=== PATIENT | female | born 1945 | race African-American/Black ===

== ENCOUNTER 2018-02-09 12:43 | Inpatient (IN) | payer OTHER ==
[~2018-02-09] VITALS: Ht 170.2 cm; Wt 76.7 kg
--- NOTE | ~2018-02-09 | HC ---
[facility] [place] [address] CONSULTATION Name: RHIANNA CORDERO Room #: 363-P [facility] IN ..#: [id number] Admission: 02/09/18 Attend Phys: Lu Feldman Discharge: 02/10/18 Date of : 43 Report #: [id number] THIS REPORT FOR: //name// CC: Tommy Ott DATE OF SERVICE: 02/10/2018 CHIEF COMPLAINT: Pressure ulcerations. HISTORY OF PRESENT ILLNESS: This is a 72-year-old female patient who was admitted to the hospital with elevated liver function tests and potential history of cirrhosis. She has had a history of a neuroendocrine tumor of the pancreas, status post Whipple procedure and atrial fibrillation. She was noted to have some ulceration in her pelvic region. I have been asked to see her with regard to wound care. ALLERGIES: INCLUDE PENICILLIN. MEDICATIONS: Please see the MAR, which has been reviewed. FAMILY HISTORY: Unknown. PAST SURGICAL HISTORY: The patient has had previous Whipple procedure and previous splenectomy. She has a history of a PEG tube. SOCIAL HISTORY: The patient has been living in nursing care facility. She was and had lived with her prior to recent illnesses. REVIEW OF SYSTEMS: Mostly unobtainable due to the patient's level of alertness. She complains of some diffuse abdominal discomfort, otherwise is unobtainable. PHYSICAL EXAMINATION: VITAL SIGNS: At this time includes pulse rate 92, respiratory rate of 16, blood pressure 140/74, temperature 98.3. GENERAL: This is a chronically ill-appearing female patient who appears to be in minimal distress. HEENT: Head normocephalic. Nose and throat are clear. NECK: Supple. LUNGS: Clear. ABDOMEN: Soft, mild tenderness throughout. No specific guarding or rebound noted. PEG tube noted. EXTREMITIES: Lower extremities demonstrate trace edema. Distal pulses are diminished, but palpable. SKIN: Pelvic region demonstrates a few areas of scarring, on the sacral region and the right posterior thigh. The heels are intact and overall, I do not find [facility] [address] [place] [address] CONSULTATION Name: RHIANNA CORDERO Room #: 363-P [facility] IN M.R.#: [id number] Admission: 02/09/18 Attend Phys: Lu Feldman Discharge: 02/10/18 Date of : 43 Report #: [id number] any skin breakdown at present, although evidence of prior pressure ulceration is noted. CLINICAL IMPRESSION: 1. History of likely pressure ulcerations, which now appear to be closed and epithelialized. 2. Hepatitis. 3. History of neuroendocrine tumor of the pancreas, status post Whipple procedure. 4. History of respiratory failure. RECOMMENDATIONS: At this point in time, I think the patient would be best cared for in a low air loss mattress with frequent turning and repositioning as pressure prophylaxis as well as Prevalon boots while she is in bed. Barrier cream would also be a helpful preventative measure to the sacral gluteal region. At this point in time, she has no active open ulcerations or wounds and therefore, we will sign off and not follow her unless she were to develop some disruption of her skin. I do appreciate being asked to see her in consultation. <ELECTRONICALLY SIGNED> By: Allen Fernández MD 02/11/18 1131 39 Allen Fernández MD /nt
--- NOTE | ~2018-02-09 | H ---
[facility] [place] [address] HISTORY AND PHYSICAL Name: GILRHIANNA Room #: 363-P ADM IN .R.#: [id number] Admission: 02/09/18 Attend Phys: Lu Feldman Discharge: Date of : 43 Report #: [id number] THIS REPORT FOR: //name// CC: Tommy Ott DATE OF SERVICE: 02/09/2018 CHIEF COMPLAINT: Abdominal pain. HISTORY OF PRESENT ILLNESS: The patient is a 72-year-old female who is admitted from [facility] for evaluation of abnormal liver function test. Her history began in November of this year when she underwent a resection of a neuroendocrine tumor of the pancreas at [facility] after previously having a diagnosis in April of 2016. That hospital course in November was complicated postoperatively with an intra-abdominal infection and sepsis due to a hepatojejunostomy leak that required additional surgery on November 30 of exploratory laparotomy, repair of leak and removal of drainage of an intra-abdominal abscess. Cultures grew a multidrug resistant E. coli, Klebsiella, Enterococcus Luisa and Prevotella. She developed respiratory failure requiring intubation, mechanical ventilation, tracheostomy and PEG tube placement along with acute kidney injury and paroxysmal atrial fibrillation. She then transferred to [facility] where she was subsequently weaned from the ventilator and decannulated. However, on January 04 when [facility] closed, she was transferred to [facility] where she has been under the care of Dr. Elisabeth Buckner. She has had complications of fever and has been on antibiotics. There is also been complications of anemia and required transfusions. In recent days, she has noted increasing liver function tests and alkaline phosphatase and there is a concern for cholangitis or primary biliary cirrhosis. She is admitted for GI evaluation. PAST MEDICAL HISTORY: As above. Surgery included pancreatectomy, splenectomy, Robson-en-Y hepatojejunostomy and then the exploratory laparotomy approximately 10 days later. She has also had a trach which has been decannulated and currently has a PEG tube. There is also history of hypertension, breast cancer in remission and paroxysmal atrial fibrillation. PAST SURGICAL HISTORY: As above. FAMILY HISTORY: Unknown. SOCIAL HISTORY: She was and lives with her prior to this illness. No chronic alcohol or tobacco use. ALLERGIES: PENICILLIN. [address] [address] HISTORY AND PHYSICAL Name: RHIANNA CORDERO Room #: 363-P [facility] IN [facility].#: [id number] Admission: 02/09/18 Attend Phys: uL Feldman Discharge: Date of : 43 Report #: [id number] MEDICATIONS: See the transfer list. REVIEW OF SYSTEMS: She complains of diffuse pain, some abdominal discomfort. PHYSICAL EXAMINATION: VITAL SIGNS: Per the nursing note. GENERAL: She is an elderly lady, looks chronically ill. She is awake and alert. HEAD AND NECK: Unremarkable. LUNGS: Clear. HEART: Regular. ABDOMEN: Protuberant. She is tender in the right upper quadrant. There is a PEG tube in the mid left abdomen. EXTREMITIES: No cyanosis, clubbing or edema. NEUROLOGIC: Global strength 3/5. SKIN: She has gluteal wound and wound over her mid back and scapular area. LABORATORY DATA: AST 730, ALT 293, bilirubin 3.8, alkaline phosphatase 6554. ASSESSMENT: 1. Hepatitis of unknown etiology. Consider cholangitis, infectious or obstructive. 2. Neuroendocrine tumor of the pancreas, status post Whipple procedure and excision on November 19 complicated by anastomosis leak and exploratory laparotomy November 30. 3. History of respiratory failure apparently self decannulated at [facility], has been stable for several days, hyperkalemia, recent potassium 5.8, possibly related to Aldactone use, anemia of chronic disease, personal history of remote breast cancer, history of hypertension, history of paroxysmal atrial fibrillation. PLAN: I will ask for a CT of the abdomen and pelvis along with lab work. I have asked the GI and ID services to see her as well. <ELECTRONICALLY SIGNED> By: Benito Montana MD 02/10/18 0914 [id number] [id number] Benito Montana MD /nt
--- NOTE | ~2018-02-09 | HC ---
[facility] [place] [address] CONSULTATION Name: RHIANNA CORDERO Room #: 363-P ADM IN M.R.#: [id number] Admission: 02/09/18 Attend Phys: Lu Feldman Discharge: Date of : 43 Report #: [id number] THIS REPORT FOR: //name// CC: Tommy Ott TYPE OF REPORT: Infectious diseases consultation. REASON FOR CONSULTATION: I was asked to evaluate concerning leukocytosis, abdominal pain in the setting of previous upper abdominal infection following Whipple's procedure. HISTORY OF PRESENT ILLNESS: The patient was a 72-year old who transferred from [facility] because of markedly increased alkaline phosphatase in the 6000 range and persistent abdominal pain. In November of this year, she underwent a Whipple procedure for neuroendocrine tumor of the pancreas by Dr. Candido Paiz. Her initial diagnosis was in April of 2016. This was complicated by hepatojejunostomy leak and required further surgical intervention and drainage of intra-abdominal abscess. Cultures revealed E. coli, Klebsiella, Enterococcus, Prevotella and Luisa. She received a prolonged course of antibiotics. Transferred to [facility] and while there, she required transfer to [facility] due to closure of that facility. Since evaluation at [facility], she has had weaning from the ventilator. She self decannulated 2 days ago and has remained stable from respiratory standpoint. However, she has had persistent abdominal pain and swelling in the epigastric region. She has had several CT scans, which showed no evidence of intra-abdominal abscess or extension of her tumor. She does have a common bile duct stent in place. Most recent CAT scan was from this past week. Due to inability to further work this issue up at the acute long-term care facility, she was transferred for further evaluation today at [facility]. No fever, chills or sweats. Intermittent cough. Her tracheostomy stoma has healed. No dysuria or frequency. Has peripheral edema. Soft loose stool. ALLERGIES: PENICILLIN. MEDICATIONS: As noted on her MAR including meropenem, Lasix, Imodium, Lopressor, Protonix, potassium, spironolactone, oxycodone and morphine p.r.n. PAST MEDICAL HISTORY: Pancreatectomy, splenectomy, Robson-en-Y, hepatojejunostomy, neuroendocrine pancreatic tumor, hypertension, breast cancer in remission, paroxysmal atrial fibrillation and respiratory failure and now weaned off the ventilator. FAMILY HISTORY: Noncontributory. SOCIAL HISTORY: . Nonsmoker. No significant alcohol intake. [facility] [address] [place] [address] CONSULTATION Name: RHIANNA CORDERO Room #: 363-P [facility].#: [id number] Admission: 02/09/18 Attend Phys: Lu Feldman Discharge: Date of : 43 Report #: [id number] PHYSICAL EXAMINATION: VITAL SIGNS: Afebrile and hemodynamically stable. Oxygen saturation normal on room air. GENERAL: Alert and cooperative. HEENT: Tracheostomy stoma sealed. LUNGS: Decreased breath sounds in the bases with consolidation heard in the mid posterior chest regions, left greater than right. HEART: Regular, without murmur. ABDOMEN: Fullness in the epigastric region. Diffusely tender in this area. No other mass appreciated. Obese. EXTREMITIES: 2+ peripheral edema in lower extremities. NEUROLOGICAL: Nonfocal other than generalized weakness. LABORATORY DATA: Sodium 140, potassium 5, bicarbonate 21 and creatinine 1.4. AST 422, lipase 2706, bilirubin 3.2, alkaline phosphatase 6401, ALT 266, GGTP 630 and albumin 1.6. INR 1.1. Hemoglobin 8; WBC 13.5 and platelet count 367,000. Differential unremarkable. Blood cultures pending. RADIOLOGICAL DATA: CT scan of the abdomen pending. Chest x-ray shows vascular congestion, basilar infiltrates, left greater than right. Small left effusion. CT of the pelvis pending. IMPRESSION: Marked elevation in her alkaline phosphatase with elevated other liver function test markers and GGTP. I am still suspecting complication from her surgery whether blocked stent or related to metastatic disease from a neuroendocrine tumor. Currently, no evidence of anastomotic leak. I had previously discussed with Radiology at [facility] earlier in the week regarding findings on her CAT scan. There was no significant intrahepatic duct dilatation. She also has respiratory failure, having just decannulated herself within the last 2 days. So far seems reasonably stable, although she is definitely at risk for further respiratory compromise. She does have congestive heart failure and basilar infiltrates. She has peripheral edema and anasarca. RECOMMENDATIONS: Recommend continuing meropenem for broad antibiotic coverage to cover both intra-abdominal source, cholangitis and basilar pneumonitis. We would have General Surgery evaluate after repeat CAT scan as well as GI service to get a game plan as far as options to treat this patient going forward. <ELECTRONICALLY SIGNED> By: Mio Croft MD 02/10/18 1030 20 0029 Mio Croft MD /nt
[~2018-02-09 12:43] MED LIST: ARTHROTEC 75 T1 EAC1 PO; CIPROFLOXACIN500 M3 PO; CRESTOR10 MG PO; MUCINEX600 MG PO; NASONEX17 GM NASAL; NEXIUM40 MG PO; PROCARDIA XL60 MG PO; QUINAPRIL 20 MG20 MG PO; THERA-M CAPLET1 EACH PO; TRAMADOL 50 MG50 MG PO; [UNRECOGNIZED DRUG - OTHER] PO
[2018-02-09 16:35] VITALS: BP 165/58
[2018-02-09 17:24] LABS: RBC 2.61 mil/uL (4.20-5.00); RDW 17.5 % (10.5-14.5)
[2018-02-09 17:26] LABS: HEMATOCRIT 25.4 % (37.0-47.0); MCH 30.5 pg (26.0-34.0); MCHC 31.5 g/dL (28.0-37.0); WBC 13.5 thou/uL (4.0-11.0)
[2018-02-09 17:37] LABS: INR 1.1; PROTIME 11.3 Seconds (9.3-11.4)
[2018-02-09 17:54] LABS: ALBUMIN 1.6 g/dL (3.4-5.0); CALCIUM 9.3 mg/dL (8.5-10.1); CREATININE 1.4 mg/dL (0.6-1.0); TOTAL BILIRUBIN 3.2 mg/dL (<0.1-1.0); TOTAL PROTEIN 7.7 g/dL (6.4-8.2)
[2018-02-09 18:07] LABS: ABSOLUTE NEUTROPHILS 10.1 thou/uL (1.4-8.2); TARGET CELLS FEW
[2018-02-09 18:08] LABS: HYPOCHROMASIA 1+; POLYCHROMASIA OCCASIONAL
[2018-02-09 18:30] LABS: PLATELET COUNT 376 thou/uL (150-400)
[2018-02-09 20:00] VITALS: BP 130/65
[2018-02-09 23:50] VITALS: BP 120/61
[2018-02-10] MEDS ORDERED: LASIX 40 MG TAB40 M2 IV PUSH (02:54)
[2018-02-10] MEDS ORDERED: LOPERAMIDE 2 MG2 M1 PO (02:55)
[2018-02-10] MEDS ORDERED: MEROPENEM-500 MG/50 IVPB (02:57)
[2018-02-10] MEDS ORDERED: TOPROL XL25 MG PO (02:58)
[2018-02-10] MEDS ORDERED: PROTONIX40 M1 IV PUSH (02:59)
[2018-02-10] MEDS ORDERED: EFFER-K 20 MEQ20 ME1 PO (03:02)
[2018-02-10] MEDS ORDERED: PROSOURCE PLUS30 ML PO (03:10)
[2018-02-10] MEDS ORDERED: ALDACTONE25 MG PO (03:12)
[2018-02-10] MEDS ORDERED: REMEDY CALAZIM113 G2 TOP (03:14)
[2018-02-10] MEDS ORDERED: TUMS PO (03:16)
[2018-02-10] MEDS ORDERED: GLUCAGON EMERGEN1 MG SUBQ (03:20)
[2018-02-10] MEDS ORDERED: GLUTOSE GEL 1515 G1 PO (03:24)
[2018-02-10] MEDS ORDERED: GLUCOSE BITS1 GM PO (03:25)
[2018-02-10] MEDS ORDERED: MORPHINE SU4 MG/1 ML IV PUSH (03:28)
[2018-02-10] MEDS ORDERED: ONDANSETRON HCL4 M2 PO (03:30)
[2018-02-10] MEDS ORDERED: OXYCODONE HCL 55 MG PER TUBE (03:32)
[2018-02-10 04:00] VITALS: BP 103/60
[2018-02-10 05:57] LABS: HEMATOCRIT 23.1 % (37.0-47.0); HEMOGLOBIN 7.6 gm/dL (12.0-15.0); MCH 31.5 pg (26.0-34.0); MCHC 32.7 g/dL (28.0-37.0); MCV 96.3 fL (80.0-100.0); RBC 2.4 mil/uL (4.20-5.00); RDW 16.7 % (10.5-14.5); WBC 12.2 thou/uL (4.0-11.0)
[2018-02-10 06:22] LABS: ALBUMIN 1.5 g/dL (3.4-5.0); CALCIUM 9.1 mg/dL (8.5-10.1); CREATININE 1.3 mg/dL (0.6-1.0); POTASSIUM 4.8 mmol/L (3.5-5.1); TOTAL BILIRUBIN 3.5 mg/dL (<0.1-1.0)
[2018-02-10 06:44] LABS: TOTAL PROTEIN 7.6 g/dL (6.4-8.2)
[2018-02-10 08:30] VITALS: BP 106/54
[2018-02-10 12:30] VITALS: BP 132/65
[2018-02-10 16:37] VITALS: BP 128/60
[2018-02-10 20:00] VITALS: BP 140/74
== END 2018-02-10 20:47 | disposition short-term general hospital (02) | DRG 441 ==
LOC: 3W 12:43
PROVIDERS: Internal Medicine Geriatric Medicine
DX: K75.9 Inflammatory liver disease, unspecified (principal); E43 Unspecified severe protein-calorie malnutrition; I10 Essential (primary) hypertension; I48.0 Paroxysmal atrial fibrillation; D64.9 Anemia, unspecified; Z88.0 Allergy status to penicillin; D3A.8 Other benign neuroendocrine tumors; Z90.410 Acquired total absence of pancreas; Z90.81 Acquired absence of spleen; Z85.3 Personal history of malignant neoplasm of breast; Z90.49 Acquired absence of other specified parts of digestive tract; Z68.26 Body mass index [BMI] 26.0-26.9, adult
CPT/HCPCS: 10779